=== PATIENT | male | born 1990 | race Caucasian/White ===

== ENCOUNTER 2025-01-01 19:17 | Emergency (ER) | payer MEDICARE, MEDICAID ==
[2025-01-01] MEDS: Dexamethasone 4 MG/ML SDV PO ONE (22:27)
== END 2025-01-01 22:40 | disposition home or self-care (01) ==
LOC: JP.ED 19:17
DX: J06.9 Acute upper respiratory infection, unspecified (principal)
CPT/HCPCS: 87651; 99283; J1100